=== PATIENT | male | born 1980 | race Caucasian/White ===

== ENCOUNTER 2022-07-23 12:37 | Emergency (ER) | payer OTHER ==
[2022-07-23] MEDS ORDERED: Ibuprofen 600 MG Tab PO ONE (12:56)
[2022-07-23 14:09] LABS: CORONAVIRUS COVID-19 NAA NEGATIVE (NEGATIVE)
== END 2022-07-23 14:24 | disposition home or self-care (01) ==
LOC: JD.ED 12:37
DX: J06.9 Acute upper respiratory infection, unspecified (principal); Z20.822 Contact with and (suspected) exposure to COVID-19
CPT/HCPCS: 0240U; 87651; 99283; A9270